=== PATIENT | female | born 1935 | race Caucasian/White ===

== ENCOUNTER 2016-12-11 10:48 | Inpatient (IN) | payer MEDICARE, MEDICAID ==
[~2016-12-11] VITALS: Ht 152.4 cm; Wt 75.7 kg
[~2016-12-11 10:48] MED LIST: ASPI-1035 PO; ATOR20TA PO; ATOR40TA70 PO; CHOL20004 PO; INSNOV SUBCUT; KEPP500 PO; LEVO88TA2 PO; LEVPEN SQ; LISI10TA5 PO; PROT40 PO; QUET100T PO; TEMA15CA PO
[2016-12-11] MEDS ORDERED: SODIUM CHLORIDE 0.9% 1,000 ML IV ONE (11:28)
[2016-12-11 12:14] LABS: BASOPHILS % 0.4 % (0.0-2.0); EOSINOPHILS % 2.2 % (0.0-5.0); HEMATOCRIT. 33.4 % (36.0-48.0); HEMOGLOBIN. 10.8 g/dL (12.0-16.0); MEAN CORPUSCULAR HEMOGLOBIN 26.8 pg (28.0-32.0); MEAN CORPUSCULAR HGB CONC 32.2 g/dL (31.0-37.0); MEAN PLATELET VOLUME 8.4 fl (7.4-10.4); NEUTROPHILS % 53.4 % (40.0-76.0); PLATELET 124 x1000/uL (130-400); RED BLOOD CELL COUNT 4.02 mill/uL (4.2-5.4); RED CELL DISTRIBUTION WIDTH 16.4 % (11.6-14.6)
[2016-12-11 12:25] LABS: PROTHROMBIN TIME 10.5 sec
[2016-12-11 12:26] LABS: ALBUMIN 2.3 g/dL (3.4-5.0); ANION GAP 13; CALCIUM 8.3 mg/dL (8.5-10.1); CARBON DIOXIDE 28 mEq/L (21-32); CHLORIDE 107 mEq/L (98-107); INDEX HEMOLYSI 1 (1-3); INDEX ICTERIC 1 (1-4); INDEX LIPEMIC 1 (1-3); LIPASE 526 IU/L (73-393); UREA NITROGEN BLOOD 15 mg/dL (7-21)
[2016-12-11 12:29] LABS: ALANINE AMINOTRANSFERASE 14 IU/L (13-61); eGFR > 60 mL/min (>60)
[2016-12-11 12:31] LABS: TROPONIN I < 0.02 ng/mL (0.00-0.04)
[2016-12-11 12:32] LABS: LACTIC ACID 3.2 mmol/L (0.4-2.0)
[2016-12-11] MEDS ORDERED: SODIUM CHLORIDE 0.45% 1,000 ML IV SCH (14:06)
[2016-12-11] MEDS ORDERED: CLONIDINE 0.1MG TABLET PO PRN (14:15)
[2016-12-11] MEDS ORDERED: HYDROCODONE/ACETAMINOPHEN 5/325MG TABLET PO PRN (14:15)
[2016-12-11] MEDS ORDERED: ACETAMINOPHEN 325MG TABLET PO PRN (14:15)
[2016-12-11] MEDS ORDERED: IPRATROPIUM/ALBUTEROL 0.5-3(2.5)MG/3ML NEB INH PRN (14:15)
[2016-12-11] MEDS ORDERED: ONDANSETRON HCL 4MG/2ML VIAL IV PRN (14:15)
[2016-12-11 14:59] LABS: CLARITY URINE TURBID (CLEAR); COLOR URINE YELLOW (YELLOW); GLUCOSE URINE NEGATIVE (NEGATIVE); KETONES URINE NEGATIVE (NEGATIVE); LEUKOCYTE ESTERASE URINE 3+ (NEGATIVE); NITRITE URINE NEGATIVE (NEGATIVE); OCCULT BLOOD URINE 1+ (NEGATIVE); PH URINE 5.5 (4.5-8.0); PROTEIN URINE NEGATIVE (NEGATIVE); SPECIFIC GRAVITY URINE 1.009 (1.005-1.030); UROBILINOGEN URINE 0.2 E.U./dL (0.2-1.0)
[2016-12-11 15:14] LABS: SQUAMOUS EPITHELIAL CELL URINE FEW /lpf (RARE/1+); WBC URINE TNTC /hpf (0-2)
[2016-12-11 15:15] LABS: BACTERIA URINE 2+
[2016-12-11] MEDS: DEXT 5%/0.45% NACL 1000ML 1,000 ML IV SCH ×2 (15:50→23:50)
[2016-12-11] MEDS ORDERED: CEFTRIAXONE 1 G PREMIX 50 ML IV ONE (17:00)
[2016-12-11] MEDS ORDERED: GABA-529 PO (18:56)
[2016-12-11] MEDS ORDERED: MULT-348 PO (18:56)
[2016-12-11] MEDS ORDERED: CARV12.545 PO (18:56)
[2016-12-11] MEDS ORDERED: METF500T4 PO (18:56)
[2016-12-11] MEDS ORDERED: DIVA500T PO (18:56)
[2016-12-11] MEDS ORDERED: LEVE500T19 PO (18:56)
[2016-12-11 19:38] VITALS: BP 122/74
[2016-12-11 20:00] VITALS: BP 117/69
[2016-12-11] MEDS: ENOXAPARIN 40MG/0.4ML SYR SUBCUT SCH (20:29)
[2016-12-11] MEDS ORDERED: HYDRALAZINE 20MG/ML VIAL IV PRN (21:00)
[2016-12-11] MEDS ORDERED: DEXTROSE 50% WATER 50ML SYRINGE IV PRN (21:00)
[2016-12-11] MEDS: BLOOD SUGAR DIAGNOSTIC STRIP TEST SCH (21:25)
[2016-12-11] MEDS: MORPHINE SULFATE 2 MG/ML CPJ (NOT FOR IM USE) IV PRN (21:46)
[2016-12-11] MEDS: TEMAZEPAM 15MG CAPSULE PO PRN (21:46)
[2016-12-11] MEDS: INSULIN LISPRO 100 UNITS/ML SUBCUT SCH (21:50)
[2016-12-11 22:49] VITALS: BP 122/74
[2016-12-12] VITALS: BP 96/60
[2016-12-12 00:39] LABS: INDEX HEMOLYSI 1 (1-3)
[2016-12-12 01:53] LABS: CREATINE KINASE 28 IU/L (26-192); TROPONIN I < 0.02 ng/mL (0.00-0.04)
[2016-12-12] MEDS: MORPHINE SULFATE 2 MG/ML CPJ (NOT FOR IM USE) IV PRN ×2 (03:23→23:37)
[2016-12-12 04:00] VITALS: BP 111/66
[2016-12-12 06:16] LABS: BASOPHILS % 0.4 % (0.0-2.0); EOSINOPHILS % 1.9 % (0.0-5.0); HEMATOCRIT. 33.7 % (36.0-48.0); HEMOGLOBIN. 10.8 g/dL (12.0-16.0); LYMPHOCYTES % 41.9 % (20.0-50.0); MEAN CORPUSCULAR HEMOGLOBIN 26.5 pg (28.0-32.0); MEAN CORPUSCULAR HGB CONC 32.1 g/dL (31.0-37.0); MEAN CORPUSCULAR VOLUME 82.6 fL (81.0-99.0); MEAN PLATELET VOLUME 8.7 fl (7.4-10.4); MONOCYTES % 6.9 % (2.0-8.0); NEUTROPHILS % 48.9 % (40.0-76.0); PLATELET 123 x1000/uL (130-400); RED BLOOD CELL COUNT 4.07 mill/uL (4.2-5.4); WHITE BLOOD COUNT 8.5 x1000/uL (4.5-11.0)
[2016-12-12] MEDS: BLOOD SUGAR DIAGNOSTIC STRIP TEST SCH ×4 (06:34→21:09)
[2016-12-12 07:55] VITALS: BP 106/68
[2016-12-12 07:58] LABS: ALANINE AMINOTRANSFERASE 17 IU/L (13-61); ALBUMIN 2.1 g/dL (3.4-5.0); ANION GAP 12; CALCIUM 7.6 mg/dL (8.5-10.1); CARBON DIOXIDE 24 mEq/L (21-32); CHLORIDE 109 mEq/L (98-107); CREATINE KINASE 82 IU/L (26-192); HDL CHOLESTEROL 32 mg/dL (40-59); INDEX HEMOLYSI 4 (1-3); INDEX ICTERIC 1 (1-4); INDEX LIPEMIC 1 (1-3); LDL CHOLESTEROL 47 mg/dL (5-100); TRIGLYCERIDE 94 mg/dL (0-150); TROPONIN I < 0.02 ng/mL (0.00-0.04); UREA NITROGEN BLOOD 12 mg/dL (7-21); eGFR > 60 mL/min (>60)
[2016-12-12] MEDS: INSULIN LISPRO 100 UNITS/ML SUBCUT SCH ×4 (08:58→21:11)
[2016-12-12] MEDS: DEXT 5%/0.45% NACL 1000ML 1,000 ML IV SCH (08:59)
[2016-12-12 11:53] VITALS: BP 137/82
[2016-12-12] MEDS ORDERED: TEMAZEPAM 15MG CAPSULE PO PRN (12:00)
[2016-12-12 16:01] VITALS: BP 146/92
[2016-12-12] MEDS ORDERED: CEFTRIAXONE 1 G PREMIX 50 ML IV SCH ×2 (17:00→20:00)
[2016-12-12] MEDS: QUETIAPINE FUMARATE 25MG TABLET PO SCH (19:26)
[2016-12-12] MEDS: ENOXAPARIN 40MG/0.4ML SYR SUBCUT SCH (20:46)
[2016-12-12] MEDS: TEMAZEPAM 15MG CAPSULE PO PRN (20:50)
[2016-12-13] VITALS: BP 115/80
[2016-12-13 04:00] VITALS: BP 120/80
[2016-12-13] MEDS: MORPHINE SULFATE 2 MG/ML CPJ (NOT FOR IM USE) IV PRN (05:02)
[2016-12-13] MEDS: BLOOD SUGAR DIAGNOSTIC STRIP TEST SCH ×2 (06:33→13:12)
[2016-12-13] MEDS: INSULIN LISPRO 100 UNITS/ML SUBCUT SCH ×2 (06:53→13:53)
[2016-12-13 08:00] VITALS: BP 130/81
[2016-12-13] MEDS: QUETIAPINE FUMARATE 25MG TABLET PO SCH (08:48)
[2016-12-13 12:00] VITALS: BP 97/61
[2016-12-13 12:19] VITALS: BP 130/81
== END 2016-12-13 14:25 | DRG 638 ==
LOC: ER 10:55 → INTOOBSV 18:47 → OBSVTOIN 18:47 → 6WST 18:47
PROVIDERS: ADMIT Internal Medicine; ATTEND Internal Medicine
DX: E11.649 Type 2 diabetes mellitus with hypoglycemia without coma (principal); N39.0 Urinary tract infection, site not specified; E44.0 Moderate protein-calorie malnutrition; I10 Essential (primary) hypertension; F03.90 Unspecified dementia, unspecified severity, without behavioral disturbance, psychotic disturbance, mood disturbance, and anxiety; D64.9 Anemia, unspecified; E86.0 Dehydration; B95.2 Enterococcus as the cause of diseases classified elsewhere; Z86.73 Personal history of transient ischemic attack (TIA), and cerebral infarction without residual deficits; Z88.8 Allergy status to other drugs, medicaments and biological substances; Z79.82 Long term (current) use of aspirin; Z79.4 Long term (current) use of insulin; Z79.899 Other long term (current) drug therapy; Z90.49 Acquired absence of other specified parts of digestive tract; Z90.722 Acquired absence of ovaries, bilateral; Z68.32 Body mass index [BMI] 32.0-32.9, adult
CPT/HCPCS: 36415; 51702; 71010; 80053; 80061; 81001; 82550; 82962; 83605; 83690; 84439; 84443; 84484; 85025; 85610; 87040; 87077; 87086; 87186; 93005; 96374; 97163; 99285; C1893; J0360; J0696; J1650; J1815; J2270; J3490; J7030; J7050